=== PATIENT | male | born 2000 | race Two or more races ===

== ENCOUNTER 2019-02-01 20:29 | Emergency (ER) | payer MEDICAID ==
[~2019-02-01] VITALS: Ht 170.2 cm; Wt 95.0 kg
--- NOTE | 2019-02-01 20:58 | NUR ---
PT REPORTS BLOOD IN URINE AND FECAL MATTER. PT REPORTS SYMPTOMS X 2 DAYS. PT DENIES TRUAMA BUT HAS BEEN WORKING OUT VERY HARD. PT NOTICEABLY UNCOMFORTABLE AND DIAPHORETIC. DENIES ANY RECENT ILLNESS. DOES REPORT LOWER LEFT QUADRANT PAIN.
[2019-02-01] MEDS ORDERED: KETOROLAC 30 MG/1 ML ONE (21:28)
[2019-02-01] MEDS ORDERED: KETOROLAC 30 MG/1 ML IVPush ONE (21:30)
[2019-02-01 21:31] LABS: MICROSCOPIC NOT IND
[2019-02-01 21:31] LABS: BASOPHILS # (AUTO) 0.04 x10^3/uL (0-0.3); BASOPHILS % (AUTO) 1 % (0-1); EOSINOPHILS # (AUTO) 0.09 x10^3/uL (0-0.8); EOSINOPHILS % (AUTO) 1 % (1-7); LYMPHOCYTES # (AUTO) 2.24 x10^3/uL (1-6.1); LYMPHOCYTES % (AUTO) 34 % (22-44); MD NO; MEAN CORPUSCULAR HEMOGLOBIN 31.4 pg (27.5-34.5); MEAN CORPUSCULAR HGB CONC 34.1 g/dL (33.2-36.2); MEAN CORPUSCULAR VOLUME 92.1 fL (81-97); MEAN PLATELET VOLUME 7.9 fL (7.4-10.4); MONOCYTES # (AUTO) 0.47 x10^3/uL (0-1.4); MONOCYTES % (AUTO) 7 % (2-9); NEUTROPHILS # (AUTO) 3.82 x10^3/uL (1.8-8.0); NEUTROPHILS % (AUTO) 57 % (42-75); PLATELET COUNT 265 x10^3/uL (130-400); RED BLOOD COUNT 4.73 x10^6/uL (4.38-5.82); RED CELL DISTRIBUTION WIDTH 12.8 % (9.4-14.8)
[2019-02-01 21:39] LABS: CULTURE INDICATED? NO
[2019-02-01 21:42] LABS: ALANINE AMINOTRANSFERASE 34 U/L (12-78); ALBUMIN 4.3 g/dL (3.4-5.0); ANION GAP 6 mmol/L (5-15); CALCIUM 9.1 mg/dL (8.5-10.1); CHLORIDE 108 mmol/L (98-107); CREATININE 1.24 mg/dL (0.7-1.3)
[2019-02-01 21:57] LABS: ALKALINE PHOSPHATASE 102 U/L (45-117); BILIRUBIN,TOTAL 0.5 mg/dL (0.2-1.0)
--- NOTE | 2019-02-01 22:41 | NUR ---
Patient is resting comfortably in bed. Vital Signs within normal limits.
[2019-02-01 22:43] VITALS: BP 114/54
[2019-02-01] MEDS ORDERED: OMNIPAQUE 350 MG/ML, 100ML BOTTLE ONE (23:33)
== END 2019-02-01 22:58 | disposition home or self-care (01) ==
LOC: ED 22:52
DX: K62.5 Hemorrhage of anus and rectum (principal); R10.32 Left lower quadrant pain
CPT/HCPCS: 74177; 80053; 81003; 82962; 83690; 85025; 96374; 99284; J1885; Q9967

== ENCOUNTER 2019-02-25 07:36 | Emergency (ER) | payer MEDICAID ==
[~2019-02-25] VITALS: Ht 167.6 cm; Wt 95.7 kg
[2019-02-25] MEDS ORDERED: SODIUM CHLORIDE FLUSH 10ML SYR IVF ONE (08:00)
[2019-02-25] MEDS ORDERED: FAMOTIDINE 20 MG/2 ML IVP ONE (08:00)
[2019-02-25] MEDS ORDERED: ONDANSETRON 2MG/ML, 2ML IVPush ONE (08:00)
[2019-02-25] MEDS ORDERED: SODIUM CHLORIDE 0.9% 1,000ML IVBOLUS ONE (08:00)
[2019-02-25] MEDS ORDERED: BUSPAR (08:06)
--- NOTE | 2019-02-25 08:09 | NUR ---
PT C/O NAUSEA AND VOMITING FOR THE LAST 12 HOURS. PT STATES HE HAS VOMITED 3 TIMES THIS MORNING.
[2019-02-25 08:16] LABS: BASOPHILS # (AUTO) 0.03 x10^3/uL (0-0.3); BASOPHILS % (AUTO) 1 % (0-1); EOSINOPHILS # (AUTO) 0.15 x10^3/uL (0-0.8); EOSINOPHILS % (AUTO) 3 % (1-7); LYMPHOCYTES # (AUTO) 1.35 x10^3/uL (1-6.1); LYMPHOCYTES % (AUTO) 25 % (22-44); MD NO; MEAN CORPUSCULAR HGB CONC 33.7 g/dL (33.2-36.2); MEAN CORPUSCULAR VOLUME 89.1 fL (81-97); MEAN PLATELET VOLUME 7.3 fL (7.4-10.4); MONOCYTES # (AUTO) 0.45 x10^3/uL (0-1.4); MONOCYTES % (AUTO) 8 % (2-9); NEUTROPHILS # (AUTO) 3.44 x10^3/uL (1.8-8.0); NEUTROPHILS % (AUTO) 63 % (42-75); PLATELET COUNT 245 x10^3/uL (130-400); RED BLOOD COUNT 5.16 x10^6/uL (4.38-5.82); RED CELL DISTRIBUTION WIDTH 12.4 % (9.4-14.8)
[2019-02-25] MEDS ORDERED: ONDANSETRON 2MG/ML, 2ML ONE (08:16)
[2019-02-25] MEDS ORDERED: FAMOTIDINE 20 MG/2 ML ONE (08:16)
[2019-02-25 08:26] LABS: ALANINE AMINOTRANSFERASE 29 U/L (12-78); ALBUMIN 4.1 g/dL (3.4-5.0); ANION GAP 9 mmol/L (5-15); CHLORIDE 109 mmol/L (98-107); CREATININE 1.21 mg/dL (0.7-1.3)
--- NOTE | 2019-02-25 08:26 | NUR ---
Patient is resting comfortably in bed. Vital Signs within normal limits.
[2019-02-25 08:28] LABS: ALKALINE PHOSPHATASE 91 U/L (45-117); BILIRUBIN,TOTAL 0.5 mg/dL (0.2-1.0)
[2019-02-25 08:37] LABS: MICROSCOPIC NOT IND
--- NOTE | 2019-02-25 08:42 | NUR ---
PT MEDICATED FOR NAUSEA. NS BOLUS RUNNING. PT DENIES ANY ADDITIONAL NEEDS. FAMILY AT BEDSIDE. VSS. NAD.
[2019-02-25 08:43] LABS: CULTURE INDICATED? NO
[2019-02-25] MEDS ORDERED: OMNIPAQUE 350 MG/ML, 100ML BOTTLE ONE (09:07)
[2019-02-25 09:34] VITALS: BP 123/45
--- NOTE | 2019-02-25 09:43 | NUR ---
Patient/Caregiver given discharge instructions and they have confirmed that they understand the instructions. Patient ambulatory with steady gait.
== END 2019-02-25 09:47 | disposition home or self-care (01) ==
LOC: ED 09:44
DX: R10.32 Left lower quadrant pain (principal); R10.13 Epigastric pain; R11.2 Nausea with vomiting, unspecified
CPT/HCPCS: 36415; 74177; 80053; 81003; 83690; 85025; 96361; 96374; 96375; 99284; J2405; J3490; J7030; Q9967